=== PATIENT | female | born 1980 | race Caucasian/White ===

== ENCOUNTER 2021-08-23 22:31 | Emergency (ER) | payer OTHER ==
[~2021-08-23] VITALS: Ht 154.9 cm; Wt 63.5 kg
[2021-08-23 23:43] LABS: CALCIUM 8.5 mg/dL (8.5-10.1); CREATININE 0.9 mg/dL (0.6-1.0); POTASSIUM 3.9 mmol/L (3.5-5.1)
[2021-08-24 00:08] LABS: BASOPHILS 0.6 % (0.0-2.0); HEMATOCRIT 35.7 % (37.0-47.0); LYMPHOCYTES 31.9 % (24.0-44.0); MCH 30.6 pg (26.0-34.0); MCHC 33.5 g/dL (28.0-37.0); MCV 91.3 fL (80.0-100.0); MONOCYTES 8.3 % (1.0-8.0); PLATELET COUNT 230 thou/uL (150-400); POLYS 57.2 % (36.0-66.0); RBC 3.91 mil/uL (4.20-5.00); RDW 13.3 % (10.5-14.5); WBC 6.9 thou/uL (4.0-11.0)
[2021-08-24 00:25] VITALS: BP 129/91
--- NOTE | 2021-08-24 08:13 | EKG ---
[place] [address] [facility] [place] [address] ELECTROCARDIOGRAM REPORT Name: DUARTE TANG Room #: DEP FIONA Garrison#: [id number] Admission: 08/23/21 Attend Phys: Discharge: 08/24/21 Date of : 82 Report #: [id number] [facility] ED Test Date: 2021-08-23 Test Time: 22:37:41 Pat Name: DUARTE TANG Department: Room: Gender: F Process Improvement Specialist: [place] : 1980 Requested By: Deng Soto Order Number: [id number] MD: Severino Doss Measurements Intervals [place] Rate: 78 P: 71 MA: 134 QRS: 43 QRSD: 119 T: 55 QT: 414 QTc: 472 Interpretive Statements Sinus rhythm Biatrial enlargement No previous ECG available for comparison Electronically Signed On 08-24-2021 8:13:10 FURNITURE [employer]INTER by Severino Doss [email or web address] <ELECTRONICALLY SIGNED> By: Severino Doss MD, [facility] 08/24/21 0813 [id number] Severino Doss MD, FACC /EPI
== END 2021-08-24 00:26 | disposition home or self-care (01) ==
LOC: ER 22:31
PROVIDERS: Emergency Medicine
DX: R07.89 Other chest pain (principal)